=== PATIENT | male | born 1995 ===

== ENCOUNTER 2017-03-30 22:12 | Emergency (ER) | payer SELFPAY ==
[2017-03-30 22:13] VITALS: BMI 23.0
[2017-03-30 22:19] VITALS: BP 141/71; PULSE 94; RESP 20; TEMP 98.2; O2SAT 96
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
== END 2017-03-31 00:09 | disposition home or self-care (01) ==
LOC: C.ER 22:12
DX: S01.81XA Laceration without foreign body of other part of head, initial encounter (principal); Y08.89XA Assault by other specified means, initial encounter; Y93.89 Activity, other specified; Y92.89 Other specified places as the place of occurrence of the external cause

== ENCOUNTER 2018-05-17 09:22 | Emergency (ER) | payer OTHER ==
[2018-05-17 09:29] VITALS: BMI 24.4
[2018-05-17 09:32] VITALS: BP 129/84; PULSE 80; RESP 18; TEMP 98.7; O2SAT 99
[2018-05-17] MEDS ORDERED: Lidocaine 1% w Epi 1:100,000 Inj INJ ONE (10:21)
[2018-05-17] MEDS ORDERED: Oxycodone/Acetaminophen 5/325 mg Tab PO STA (10:21)
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
[2018-05-17] MEDS ORDERED: Oxycodone/Acetaminophen 5/325 mg Tab ONE (10:26)
[2018-05-17] MEDS ORDERED: Tmp-Smz 800 mg-160 mg DS Tab PO STA (10:50)
[2018-05-17] MEDS ORDERED: Tmp-Smz 800 mg-160 mg DS Tab ONE (10:56)
== END 2018-05-17 11:07 | disposition home or self-care (01) ==
LOC: C.ER 09:22
DX: L02.31 Cutaneous abscess of buttock (principal)